=== PATIENT | male | born 1965 | race Caucasian/White ===

== ENCOUNTER 2022-08-04 06:47 | Day surgery (SDC) | payer BC ==
[2022-08-03 11:28] LABS: BASOPHILS # (AUTO) 0.1 X10'3 (0-0.2); BASOPHILS % (AUTO) 1.1 % (0-1); EOSINOPHILS # (AUTO) 0.1 X10'3 (0-0.9); HEMATOCRIT 47.5 % (42.0-52.0); HEMOGLOBIN 15.9 g/dl (14.0-17.9); LYMPHOCYTES # (AUTO) 1.2 X10'3 (1.1-4.8); LYMPHOCYTES % (AUTO) 22.7 % (21-51); MEAN CORPUSCULAR HEMOGLOBIN 29.8 PG (27.0-31.0); MEAN CORPUSCULAR HGB CONC 33.4 g/dL (33.0-36.5); MEAN CORPUSCULAR VOLUME 89.1 FL (78-98); MEAN PLATELET VOLUME 8.4 FL (7.4-10.4); MONOCYTES # (AUTO) 0.5 X10'3 (0-0.9); MONOCYTES % (AUTO) 9.3 % (2-12); NEUTROPHILS # (AUTO) 3.6 X10'3 (1.8-7.7); NEUTROPHILS % (AUTO) 64.9 % (42-75); PLATELET COUNT 236 X10'3 (140-440); RED BLOOD COUNT 5.34 X10'6 (4.70-6.10); RED CELL DISTRIBUTION WIDTH 14.6 % (11.5-14.5); WHITE BLOOD COUNT 5.5 X10'3 (4.5-11.0)
[2022-08-03 11:46] LABS: CALCIUM 9.7 MG/DL (8.5-10.1); CHLORIDE 103 MMOL/L (99-107); CREATININE 0.95 MG/DL (0.60-1.10); GLUCOSE 109 MG/DL (70-104); POTASSIUM 3.3 MMOL/L (3.5-5.1); TOTAL CARBON DIOXIDE 27.4 MMOL/L (24-32); eGFR 81 ML/MIN
[2022-08-03 11:48] LABS: ANION GAP 10 (8-16); BLOOD UREA NITROGEN 15 MG/DL (7-18); BUN/CREATININE RATIO 15.8 (10.0-20.0); SODIUM 140 MMOL/L (135-145)
[~2022-08-04] VITALS: Ht 188 cm; Wt 107.4 kg
[2022-08-04] VITALS (18 sets, daily range): BP systolic 73–115; BP diastolic 53–86
[~2022-08-04 06:47] MED LIST: ALLO100T PO; LISI40TA13 PO; NOR5T PO; OMEP40CA PO; ROSU5TAB4 PO; SUCR1TAB28 PO
[2022-08-04] MEDS ORDERED: MIDAZolam 1mg/ml 10ml vial IV ONE (07:10)
[2022-08-04] MEDS ORDERED: amiodarone 150mg/dext, iso-os 100 ML IV ONE (07:10)
[2022-08-04] MEDS ORDERED: atropine 0.1mg/ml 10ml syringe IV ONE (07:10)
[2022-08-04] MEDS ORDERED: diphenhydrAMINE 25mg capsule PO ONE (07:10)
[2022-08-04] MEDS ORDERED: morphine 10mg/ml inj. IV ONE (07:10)
[2022-08-04] MEDS ORDERED: normal saline 1000ml 1,000 ML IV SCH (07:10)
[2022-08-04] MEDS ORDERED: LORazepam 0.5 MG tablet PO ONE (07:10)
[2022-08-04] MEDS ORDERED: FLEC50TA28 PO (07:11)
[2022-08-04] MEDS ORDERED: METF-1203 PO (07:11)
[2022-08-04] MEDS ORDERED: APIX5TAB3 PO (07:11)
[2022-08-04] MEDS ORDERED: CARV3.122 PO (07:11)
[2022-08-04] MEDS ORDERED: potassium Cl 20 mEq SR tablet PO STA (08:28)
== END 2022-08-04 10:55 | disposition home or self-care (01) ==
LOC: SSTAY O 06:47
PROVIDERS: ATTEND Internal Medicine Cardiovascular Disease
DX: I48.0 Paroxysmal atrial fibrillation (principal); I10 Essential (primary) hypertension; E78.5 Hyperlipidemia, unspecified; E66.9 Obesity, unspecified; Z68.41 Body mass index [BMI] 40.0-44.9, adult; E11.9 Type 2 diabetes mellitus without complications; F17.210 Nicotine dependence, cigarettes, uncomplicated; Z72.89 Other problems related to lifestyle; Z79.82 Long term (current) use of aspirin; Z79.84 Long term (current) use of oral hypoglycemic drugs; Z79.899 Other long term (current) drug therapy; Z98.890 Other specified postprocedural states; Z82.49 Family history of ischemic heart disease and other diseases of the circulatory system; Z83.3 Family history of diabetes mellitus
CPT/HCPCS: 36415; 80048; 82948; 84132; 85025; 85610; 92960; 93005; J0282; J2250; J2274; J7030; A4620